=== PATIENT | female | born 1995 | race Caucasian/White ===

== ENCOUNTER → 2017-04-11 | Outpatient (CLI) | payer OTHER ==
[~2017-04-11] MED LIST: CETI-175 PO; ESCI10TA8 PO; ESCI20TA38 PO; FLUC150T40 PO; LEVO1TAB30 PO; PRED20TA6 PO
[2017-04-11 10:56] LABS: PLATELET COUNT, AUTOMATED 369 K/uL (150-450)
[2017-04-11 11:11] LABS: LDL CHOLESTEROL 72 mg/dl
== END ==
LOC: LAB 10:37
PROVIDERS: ATTEND Nurse Practitioner Family
DX: Z01.419 Encounter for gynecological examination (general) (routine) without abnormal findings (principal); Z83.49 Family history of other endocrine, nutritional and metabolic diseases; Z82.49 Family history of ischemic heart disease and other diseases of the circulatory system; F32.9 Major depressive disorder, single episode, unspecified
CPT/HCPCS: 36415; 82040; 82247; 82310; 82374; 82435; 82465; 82565; 82947; 83718; 84075; 84132; 84155; 84295; 84443; 84450; 84460; 84478; 84520; 85025